=== PATIENT | female | born 1965 | race Caucasian/White ===

== ENCOUNTER 2016-07-20 15:16 | Observation (INO) | payer SELFPAY ==
[~2016-07-20] VITALS: Ht 160 cm; Wt 61.4 kg
[2016-07-20 18:47] LABS: HEMOGLOBIN 14.1 g/dL (11.7-16.4)
[2016-07-20 18:58] LABS: BLOOD UREA NITROGEN 8 mg/dL (7-18)
[2016-07-20 18:59] LABS: ACETAMINOPHEN < 2 mcg/mL (10-30)
[2016-07-20] MEDS ORDERED: ZIPRASIDONE 20 MG INJ IM ONE (20:00)
[2016-07-20] MEDS ORDERED: ACETAMINOPHEN 325 MG TABLET PO PRN (20:00)
[2016-07-20] MEDS ORDERED: PLEASE ENTER HEIGHT AND WEIGHT MC SCH (20:30)
[2016-07-20 20:34] VITALS: BP 120/77
[2016-07-20] MEDS: PLEASE ENTER ALLERGIES MC SCH ×2 (20:41)
[2016-07-20] MEDS: ENOXAPARIN 40 MG/0.4 ML SQ SCH (21:32)
[2016-07-21] MEDS: PLEASE ENTER ALLERGIES MC SCH ×6 (04:30→20:30)
[2016-07-21 08:16] VITALS: BP 105/67
[2016-07-21 19:14] VITALS: BP 103/51
[2016-07-21] MEDS: ENOXAPARIN 40 MG/0.4 ML SQ SCH (20:05)
[2016-07-22] MEDS: PLEASE ENTER ALLERGIES MC SCH ×2 (05:17)
[2016-07-22 07:50] VITALS: BP 95/57
[2016-07-22 19:48] VITALS: BP 102/60
[2016-07-22] MEDS: ENOXAPARIN 40 MG/0.4 ML SQ SCH (20:28)
[2016-07-23 09:59] VITALS: BP 113/70
[2016-07-23 19:41] VITALS: BP 115/80
[2016-07-23] MEDS: ENOXAPARIN 40 MG/0.4 ML SQ SCH (20:00)
[2016-07-24 09:08] VITALS: BP 110/62
[2016-07-24 19:33] VITALS: BP 117/71
[2016-07-24] MEDS: ENOXAPARIN 40 MG/0.4 ML SQ SCH (20:00)
[2016-07-25 07:45] VITALS: BP 105/61
[2016-07-25 19:33] VITALS: BP 98/59
[2016-07-25] MEDS: ENOXAPARIN 40 MG/0.4 ML SQ SCH (20:00)
[2016-07-26 07:27] VITALS: BP 101/58
[2016-07-26 07:55] LABS: DAU SCREEN DISCLAIMER
[2016-07-26 19:22] VITALS: BP 104/64
[2016-07-27 07:53] VITALS: BP 94/57
[2016-07-27 19:32] VITALS: BP 99/59
== END 2016-07-27 23:44 ==
LOC: ED 18:21 → EDIP 19:11 → INTOOBSV 19:11 → 3E 20:29
PROVIDERS: ADMIT Family Medicine; ATTEND Family Medicine
DX: F29 Unspecified psychosis not due to a substance or known physiological condition (principal); F23 Brief psychotic disorder; F22 Delusional disorders; R45.851 Suicidal ideations; Z91.5 Personal history of self-harm
CPT/HCPCS: 36415; 70450; 80048; 80307; 80329; 81001; 82040; 84443; 84703; 85025; 87086; 99285; G0378; G0480